=== PATIENT | female | born 1945 | race Caucasian/White ===

== ENCOUNTER → 2016-05-28 | Outpatient (CLI) | payer OTHER ==
[~2016-05-28] MED LIST: ASPIR-LOW81 MG PO; SIMVASTATIN40 MG PO; VAGIFEM10 MCG VG
== END | disposition home or self-care (01) ==
DX: M17.12 Unilateral primary osteoarthritis, left knee (principal); M25.562 Pain in left knee; M25.662 Stiffness of left knee, not elsewhere classified; R26.2 Difficulty in walking, not elsewhere classified; M62.89 Other specified disorders of muscle
CPT/HCPCS: 97110 GP; 97150 GO; 97161 GP; 97165 GO; G8978 GP; G8979 GP; G8980 GP; G8987 GO; G8988 GO; G8989 GO

== ENCOUNTER 2016-06-17 09:08 | Inpatient (IN) | payer OTHER ==
[~2016-06-17] VITALS: Ht 165.1 cm; Wt 82.5 kg
[~2016-06-17 09:08] MED LIST changes: +ALEVE220 MG PO; +IRON325 MG PO; +LOW DOSE ASPIRI81 M1 PO; +MAGNESIUM250 MG PO; +MULTIPLE VITAM1 EAC4 PO; +VITAMIN C250 MG PO; +VITAMIN D31000 UNI2 PO; +VITAMIN E400 UNIT PO; +ZOCOR40 MG PO
[2016-06-17] MEDS ORDERED: VISTARIL25 MG PO (09:31)
[2016-06-17] MEDS ORDERED: LAB DRAW (09:31)
[2016-06-17] MEDS ORDERED: COUMADIN2.5 MG PO (09:31)
[2016-06-17] MEDS ORDERED: PERCOCET 5/31 TABLET PO (09:31)
[2016-06-17 09:52] VITALS: BP 129/73
[2016-06-17 16:35] VITALS: BP 131/68
[2016-06-17 19:53] VITALS: BP 119/65
[2016-06-17 23:29] VITALS: BP 132/69
[2016-06-18 03:28] VITALS: BP 108/62
[2016-06-18 05:56] LABS: MCV 87.3 FL (83-99)
[2016-06-18 06:22] LABS: ANION GAP 9 MEQ/L (2-14); CHLORIDE 101 MEQ/L (99-109); GFR ESTIMATE (CALCULATED) > 59 mL/min/; GLUCOSE 145 mg/dL (70-99); POTASSIUM 4.1 MEQ/L (3.7-5.4); SAMPLE HEMOLYSIS CHECK 0; SAMPLE ICTERIC CHECK 0; SAMPLE LIPEMIA CHECK 0; SODIUM 135 MEQ/L (136-147); UREA NITROGEN (BUN) 14 mg/dL (9-23)
[2016-06-18 06:25] LABS: PROTHROMBIN TIME 10.3 (9.2-11.2)
[2016-06-18 08:07] VITALS: BP 92/53
[2016-06-18 12:05] VITALS: BP 112/57
[2016-06-18 16:11] VITALS: BP 113/58
[2016-06-18 19:17] VITALS: BP 129/58
[2016-06-19 00:16] VITALS: BP 128/61
[2016-06-19 03:57] VITALS: BP 138/63
[2016-06-19 05:11] LABS: HEMATOCRIT 33.3 % (36.0-46.0); MCV 87.9 FL (83-99)
[2016-06-19 05:31] LABS: INTER. NORMALIZED RATIO 1.3; PROTHROMBIN TIME 13.1 (9.2-11.2)
[2016-06-19 08:28] VITALS: BP 141/67
[2016-06-19 12:21] VITALS: BP 124/59
== END 2016-06-19 15:57 | DRG 470 ==
LOC: 2SOUTH 09:08 → 3WEST 16:15
PROVIDERS: Orthopaedic Surgery
PROC: 0SRG0J9 Replacement of Left Ankle Joint with Synthetic Substitute, Cemented, Open Approach (ICD-10-PCS; principal; 2016-06-17)
DX: M17.12 Unilateral primary osteoarthritis, left knee (principal); E78.5 Hyperlipidemia, unspecified; Z79.82 Long term (current) use of aspirin; Z88.8 Allergy status to other drugs, medicaments and biological substances; M25.562 Pain in left knee
CPT/HCPCS: 80048; 85014; 85018; 85610; C1713; J0690; J1885; J2405; J7050; J7120

== ENCOUNTER 2016-07-22 05:31 | Observation (INO) | payer OTHER ==
[~2016-07-22] VITALS: Ht 162.6 cm; Wt 82.5 kg
[~2016-07-22 05:31] MED LIST changes: +COUMADIN2.5 MG PO; +LAB DRAW; +PERCOCET 5/31 TABLET PO; +VISTARIL25 MG PO
[2016-07-22 06:10] LABS: HEMATOCRIT 38.8 % (36.0-46.0); MCH 27.7 PG (29.0-34.0); MCHC 32.7 G/DL (30.0-36.0); MCV 84.7 FL (83-99); MEAN PLAT.VOLUME 10.1 uM^3 (9.5-12.4); PLATELET COUNT 262 K/uL (156-360); RBC DIS.WIDTH-CV 13.7 % (11.8-14.6); RBC DIS.WIDTH-SD 41.6 % (39-53); RED BLOOD COUNT 4.58 M/uL (3.80-5.20); WHITE BLOOD COUNT 14.1 K/uL (4.1-10.2)
[2016-07-22 06:19] LABS: CHLORIDE 107 mEq/L (99-109); SODIUM 142 mEq/L (136-147)
[2016-07-22 06:21] LABS: GLUCOSE 132 mg/dL (70-99)
[2016-07-22 06:22] LABS: ANION GAP 11 MEQ/L (2-14)
[2016-07-22 06:23] LABS: TOTAL BILIRUBIN 0.5 mg/dL (0.0-1.0)
[2016-07-22 06:24] LABS: ALKALINE PHOSPHATASE 69 IU/L (3-129)
[2016-07-22 06:25] LABS: GFR ESTIMATE (CALCULATED) > 59 mL/min/
[2016-07-22 06:26] LABS: UREA NITROGEN (BUN) 13 mg/dL (9-23)
[2016-07-22 07:21] LABS: DELETE MACHINE DIFF? YES
[2016-07-22 07:22] LABS: ABS NEUTROPHIL COUNT 7.05; ANISOCYTOSIS 1+; EOSINOPHIL ABS CT 0.71; MICROCYTOSIS 1+; OVALOCYTES OCC; PLAT.SUFFICIENCY ADEQUATE; USER ID TLW
[2016-07-22] MEDS ORDERED: LOW DOSE ASPIRI81 M1 PO (08:14)
[2016-07-22] MEDS ORDERED: LO-DOSE ASPIRIN81 M1 PO (08:16)
[2016-07-22] MEDS ORDERED: PERCOCET 5/31 TABLET PO ×2 (08:19→08:21)
[2016-07-22 09:20] VITALS: BP 172/85
[2016-07-22 11:15] VITALS: BP 154/82
[2016-07-22 12:40] VITALS: BP 135/75
[2016-07-22 16:30] VITALS: BP 145/80
[2016-07-22 20:00] VITALS: BP 115/54; BP 155/76
[2016-07-23] VITALS: BP 144/65
[2016-07-23 04:00] VITALS: BP 137/71
[2016-07-23 08:21] VITALS: BP 140/64
[2016-07-23] MEDS ORDERED: BENADRYL25 MG PO (08:41)
[2016-07-23] MEDS ORDERED: PREDNISONE10 MG PO (08:43)
== END 2016-07-23 09:55 | disposition home or self-care (01) ==
LOC: EME 05:31 → 5WEST 07:33 → EDOF 07:33 → 5WEST 09:15
PROVIDERS: Emergency Medicine
DX: T78.3XXA Angioneurotic edema, initial encounter (principal); T39.015A Adverse effect of aspirin, initial encounter; E87.6 Hypokalemia; E78.5 Hyperlipidemia, unspecified; Z96.652 Presence of left artificial knee joint
CPT/HCPCS: 80053; 85025; 99281; 99285; G0378; J1200; J2930; J7040; J7512; S0028